=== PATIENT | male | born 1985 | race African-American/Black ===

== ENCOUNTER 2016-09-27 02:41 | Emergency (ER) | payer OTHER, BC ==
[~2016-09-27] VITALS: Ht 170.2 cm; Wt 111.4 kg
[~2016-09-27 02:41] MED LIST: FLEXERIL 1010 MG/TAB PO; MOTRIN 800800 MG/TAB PO; STIMULANT
[2016-09-27 02:45] VITALS: BP 144/75; TEMP 98
[2016-09-27] MEDS ORDERED: NUVIGIL50 MG (02:48)
[2016-09-27 03:19] VITALS: PULSE 78
== END 2016-09-27 03:20 | disposition home or self-care (01) ==
LOC: COL.ER 02:41
DX: S00.531A Contusion of lip, initial encounter (principal); Y04.2XXA Assault by strike against or bumped into by another person, initial encounter